=== PATIENT | female | born 1960 | race Caucasian/White ===

== ENCOUNTER → 2020-03-23 | Outpatient (CLI) | payer OTHER ==
--- NOTE | 2020-03-23 10:01 | Diagnostic Imaging Report ---
INDICATION: Right shoulder pain. AP, oblique, and transscapular views of the right shoulder are obtained. No fracture or acute bony abnormality is seen. There is mild degenerative change of the AC joint. Glenohumeral joint appears unremarkable. IMPRESSION: Mild degenerative change of the AC joint. No acute appearing finding. Dictated by: Dictated on workstation # [id number]
== END ==
LOC: RAD FS 09:33
PROVIDERS: ATTEND Nurse Practitioner
DX: M19.011 Primary osteoarthritis, right shoulder (principal)
CPT/HCPCS: 73030

== ENCOUNTER → 2021-08-24 | Outpatient (CLI) | payer OTHER ==
--- NOTE | 2021-08-24 11:04 | Diagnostic Imaging Report ---
INDICATION: Right wrist fracture, recheck. 2 views of the right wrist demonstrate well aligned distal radial fracture. IMPRESSION: Satisfactory fracture alignment. Dictated by: Dictated on workstation # [id number]
== END ==
LOC: RAD FS 09:17
PROVIDERS: ATTEND Nurse Practitioner
DX: S52.591A Other fractures of lower end of right radius, initial encounter for closed fracture (principal)
CPT/HCPCS: 73100

== ENCOUNTER → 2021-09-09 | Outpatient (CLI) | payer OTHER ==
--- NOTE | 2021-09-09 08:57 | Diagnostic Imaging Report ---
Indication: Right wrist fracture, followup. Time of Exam: 8:41 AM Correlation is made with prior radiograph from 08/24/2021. Overlying cast has been removed. There is a healing fracture of the distal radius with intra-articular extension. There is some sclerosis although the fracture line does remain partly visible. Overall alignment is anatomic. Carpus and metacarpals are intact. IMPRESSION: Healing distal radius fracture showing anatomic alignment. Dictated by: Dictated on workstation # [id number]
== END ==
LOC: RAD FS 08:29
PROVIDERS: ATTEND Nurse Practitioner
DX: S52.591D Other fractures of lower end of right radius, subsequent encounter for closed fracture with routine healing (principal); X58.XXXD Exposure to other specified factors, subsequent encounter
CPT/HCPCS: 73100

== ENCOUNTER → 2021-09-30 | Outpatient (CLI) | payer OTHER ==
--- NOTE | 2021-09-30 09:37 | Diagnostic Imaging Report ---
INDICATION: Follow-up wrist fracture. Time of Exam: 8:42 AM Comparison is made with prior wrist radiograph from 09/09/2021. The distal radius fracture with intra-articular extension is again noted. There is continued sclerosis and blurring of the fracture line consistent with healing. Fracture line does remain partly visible. Overall alignment is anatomic. Distal ulna is intact. Carpus and metacarpals are intact. IMPRESSION: Healing distal radius fracture. Dictated by: Dictated on workstation # [id number]
== END ==
LOC: RAD FS 08:24
PROVIDERS: ATTEND Nurse Practitioner
DX: S52.591D Other fractures of lower end of right radius, subsequent encounter for closed fracture with routine healing (principal); X58.XXXD Exposure to other specified factors, subsequent encounter
CPT/HCPCS: 73110